=== PATIENT | male | born 1955 | race Caucasian/White ===

== ENCOUNTER 2017-04-02 15:24 | Emergency (ER) | payer OTHER ==
[~2017-04-02] VITALS: Ht 177.8 cm; Wt 104.0 kg
[~2017-04-02 15:24] MED LIST: ADULT LOW DOSE81 M1 PO; ASPIRIN E.C.81 M1 PO; ATIVAN0.5 M1 PO; AUGMENTIN500 MG PO; BACLOFEN10 MG PO; CEFTIN500 MG PO; EFFER-K 10 MEQ10 MEQ PO; Effexor PO; Keflex PO; LAMISIL AT TP; LASIX40 MG PO; LIORESAL5 MG PO; METOLAZONE5 MG PO; MICRO-K,K-DUR,10 MEQ PO; MULTIVITAMIN1 EAC1 PO; THERAGRAN1 TABLET PO; TYLENOL325 M1 PO; Tylenol Extra Streng PO; Tylenol Regular Stre PO; VENLAFAXINE HCL50 MG PO; ZOCOR10 M1 PO; Zocor PO
[2017-04-02 16:09] LABS: BASOPHIL COUNT 0.1 K/uL (0-0.1); EOSINOPHIL (%) 0.8 % (0-5); EOSINOPHIL COUNT 0.1 K/uL (0-0.3); HEMATOCRIT 51.5 % (38.0-50.0); IMMATURE GRANULOCYTE (%) 0.5 % (0.0-0.7); IMMATURE GRANULOCYTE COUNT 0.1 K/uL; INSTRUMENT ABS NEUTROPHIL CT 8.5 K/uL; LYMPHOCYTE COUNT 1.7 K/uL (1.0-2.8); MCHC 34.6 G/DL (30.0-36.0); MCV 89.6 FL (86-99); MEAN PLAT.VOLUME 9.9 uM^3 (9.0-12.4); MONOCYTE (%) 6.8 % (3-12); MONOCYTE COUNT 0.8 K/uL (0-0.8); NEUTROPHIL (%) 76.1 % (45-76); NEUTROPHIL COUNT 8.5 K/uL (1.8-6.4); PLATELET COUNT 315 K/uL (156-360); RBC DIS.WIDTH-SD 45.3 % (39-53); RED BLOOD COUNT 5.75 M/uL (4.00-5.50); WHITE BLOOD COUNT 11.2 K/uL (4.1-10.2)
[2017-04-02 16:18] LABS: CHLORIDE 108 mEq/L (99-109); POTASSIUM 3.9 mEq/L (3.7-5.4); SODIUM 140 mEq/L (136-147)
[2017-04-02 16:23] LABS: ANION GAP 9 MEQ/L (2-14); GLUCOSE 100 mg/dL (70-99)
[2017-04-02 16:24] LABS: GFR ESTIMATE (CALCULATED) > 59 mL/min/
[2017-04-02 16:25] LABS: UREA NITROGEN (BUN) 14 mg/dL (9-23)
[2017-04-02 17:59] LABS: ADD MIUA? YES; BILIRUBIN NEGATIVE; BLOOD SMALL; COLOR YELLOW ((YELLOW)); GLUCOSE (STRIP) NEGATIVE; KETONES 5; LEUKOCYTES NEGATIVE; NITRITE NEGATIVE; PROTEIN (STRIP) NEGATIVE; SPECIFIC GRAVITY 1.021 (1.000-1.030); UROBILINOGEN 0.2 MG/DL (0.2-1.0)
[2017-04-02 18:34] LABS: RED BLOOD CELLS RARE /HPF (0-5)
[2017-04-02 18:35] LABS: BACTERIA NONE SEEN /HPF; EPITHELIAL CELLS NONE SEEN /HPF; MUCUS NONE SEEN /LPF; WHITE BLOOD CELLS RARE /HPF (0-5)
[2017-04-02 21:37] VITALS: BP 124/88
== END 2017-04-02 22:03 ==
LOC: EME → EDBD 15:24 → EME 15:24
PROVIDERS: Physician Assistant
DX: F91.9 Conduct disorder, unspecified (principal); G31.84 Mild cognitive impairment of uncertain or unknown etiology; G35 Multiple sclerosis; E78.5 Hyperlipidemia, unspecified; Z79.82 Long term (current) use of aspirin
CPT/HCPCS: 70450; 71010; 80048; 81003; 83735; 85025; 90839; 93005; 99281; 99285